=== PATIENT | male | born 1955 | race African-American/Black ===

== ENCOUNTER 2022-07-25 20:00 | Emergency (ER) | payer OTHER ==
[~2022-07-25] VITALS: Ht 177.8 cm; Wt 92.1 kg
[2022-07-25 20:50] VITALS: BP_SYST 143
--- NOTE | 2022-07-25 20:57 | NUR ---
Pt triaged and placed back in waiting room.
--- NOTE | 2022-07-25 21:15 | NUR ---
Time Seen by Dr. Martin.
[2022-07-25] MEDS ORDERED: NIRM1TAB5 PO (22:08)
[2022-07-25] MEDS ORDERED: BENZ100C92 PO (22:08)
[2022-07-25] MEDS ORDERED: IBUP-1971 PO (22:08)
[2022-07-25 22:30] VITALS: BP_SYST 139
--- NOTE | 2022-07-25 22:30 | NUR ---
Discharged from waiting room area. Patient given written and verbal discharge instructions and verbalizes understanding. ER MD discussed with patient the results and treatment provided. Patient in stable condition. ID arm band removed. Rx of Benzonatate, ibuprofen, and Paxlovid 150-100mg Pack given. Patient educated on pain management and to follow up with PMD. Pt also aware to self isolate to prevent spread of covid. Opportunity for questions provided and answered.
== END 2022-07-25 22:30 | disposition home or self-care (01) ==
LOC: SED 20:00
DX: U07.1 COVID-19 (principal); R05.9 Cough, unspecified; R51.9 Headache, unspecified; R50.9 Fever, unspecified; Z79.899 Other long term (current) drug therapy
CPT/HCPCS: 99283